=== PATIENT | male | born 1955 | race Asian ===

== ENCOUNTER 2017-07-12 14:38 | Emergency (ER) | payer MEDICAID ==
[~2017-07-12] VITALS: Ht 167.6 cm; Wt 75.7 kg
[2017-07-12 16:32] LABS: Basophils # (auto) 0 uL; Basophils % (auto) 0.3 % (0.0-2.0); CONDITION Y; Eosinophils # (auto) 0 uL; Eosinophils % (auto) 0.6 % (0.0-7.0); Hematocrit 38.2 % (41.0-53.0); Hemoglobin 12.6 g/dL (13.5-17.5); Lymphocytes # (auto) 1.1 uL; Lymphocytes % (auto) 12.5 % (10.0-50.0); Mean Corpuscular Hemoglobin 27.6 pg (28.0-32.0); Mean Corpuscular Volume 83.8 fL (80.0-100.0); Monocytes # (auto) 0.5 uL; Monocytes % (auto) 5.8 % (0.0-12.0); Neutrophils # (auto) 7.1 uL; Neutrophils % (auto) 80.8 % (37.0-80.0); Platelet Count (auto) 209 10^3/uL (140-450); Red Cell Distribution Width 14.5 % (11.6-16.0); White Blood Cell 8.7 10^3/uL (4.4-10.8)
[2017-07-12 17:10] LABS: Albumin 3.6 g/dL (3.4-5.0); Calcium 8.6 mg/dL (8.5-10.1); Chloride 107 mmol/L (98-107); Sodium 140 mmol/L (136-145)
[2017-07-12 17:12] LABS: Anion Gap 8 (5-15); Aspartate Aminotransferase 16 U/L (15-37); Blood Urea Nitrogen 16 mg/dL (7-18); Carbon Dioxide 25 mmol/L (21-32); GFR African American 104 mL/min; GFR Non-African American 86 mL/min; Glucose 162 mg/dL (74-106); Magnesium 2.4 mg/dL (1.6-2.6)
[2017-07-12 17:45] LABS: Alkaline Phosphatase 52 U/L (45-117); Bilirubin, Total 0.3 mg/dL (0.2-1.0); Total Protein 7.3 g/dL (6.4-8.2)
[2017-07-12 17:48] VITALS: BP 145/91
== END 2017-07-12 17:51 ==
LOC: ER 14:38
DX: B34.9 Viral infection, unspecified (principal); E11.9 Type 2 diabetes mellitus without complications; E78.5 Hyperlipidemia, unspecified; I10 Essential (primary) hypertension
CPT/HCPCS: 36415; 70450; 71010; 80053; 82962; 83735; 84484; 85025; 93005; 94761

== ENCOUNTER 2024-10-20 20:30 | Emergency (ER) | payer BC, MEDICAID ==
[~2024-10-20] VITALS: Ht 167.6 cm; Wt 76.1 kg
--- NOTE | 2024-10-21 00:23 | ED.PDOC ---
Epistaxis- HPI HPI Comments This 69-year-old male presents to the ED chief complaint nosebleed x2 hours. Patient reports measures at home did not stop bleeding. He denies any blood thinners however currently takes 81 mg baby aspirin. Patient reports history of nosebleeds in the past last 1 was over 40 years ago which resolved on its own. Also states history of intermittent nosebleeds which usually resolve on their own. He denies trauma, headache, dizziness, nausea, or vomiting. Chief Complaint: Nose Bleed Time Seen by MD: 21:28 Reviewed Notes: Nurses Notes, Medications, Allergies Allergies: Coded Allergies: NO KNOWN ALLERGIES (Unverified , 07/12/17) Information Source: Patient Mode of Arrival: Ambulatory Past Medical History PAST MEDICAL HISTORY: DM, High Lipids, HTN Surgical History: Denies all surgeries Family History Family History: Reviewed,noncontributory to illness Social History Smoker: Non-Smoker Alcohol: Denies ETOH Use Drugs: Denies Drug Use Lives In: Home Constitutional: denies: chills, diaphoresis, fatigue, fever, malaise, sweats, weakness, others EENTM: reports: others (Nosebleed left nostril); denies: blurred vision, double vision, ear bleeding, ear discharge, ear drainage, ear pain, ear ringing, eye pain, eye redness, hearing loss, mouth pain, mouth swelling, nasal discharge, nose bleeding, nose congestion, nose pain, photophobia, tearing, throat pain, throat swelling, voice changes Respiratory: denies: cough, hemoptysis, orthopnea, SOB at rest, shortness of breath, SOB with excertion, stridor, wheezing, others Cardiovascular: denies: chest pain, dizzy spells, diaphoresis, Dyspnea on exertion, edema, irregular heart beat, left arm pain, lightheadedness, palpitations, PND, syncope, others Gastrointestinal: denies: abdomen distended, abdominal pain, blood streaked bowels, constipated, diarrhea, dysphagia, difficulty swallowing, hematemesis, melena, nausea, poor appetite, poor fluid intake, rectal bleeding, rectal pain, vomiting, others Genitourinary: denies: burning, dysuria, flank pain, frequency, hematuria, incontinence, penile discharge, penile sore, pain, testicle pain, testicle swelling, urgency, others Neurological: denies: dizziness, fainting, headache, left sided numbness, left sided weakness, numbness, paresthesia, pre-existing deficit, right sided numbness, right sided weakness, seizure, speech problems, tingling, tremors, w eakness, others Musculoskeletal: denies: back pain, gout, joint pain, joint swelling, muscle pain, muscle stiffness, neck pain, others Integumetry: denies: bruises, change in color, change in hair/nails, dryness, laceration, lesions, lumps, rash, wounds, others Allergic/Immunocompromised: denies: Difficulty Healing, Frequent Infections, Hives, Itching, others Hematologic/Lymphatic: denies: anemia, blood clots, easy bleeding, easy bruising, swollen glands, others Endocrine: denies: excessive hunger, excessive sweating, excessive thirst, excessive urination, flushing, intolerance to cold, intolerance to heat, unexplained weight gain, unexplained weight loss, others Psychiatric: denies: anxiety, bipolar disorder, depression, hopeless, panic disorder, schizophrenia, sleepless, suicidal, others Physical Exam General Appearance: No Apparent Distress, Normal HEENT: Pharynx Normal, TMs Normal, Other (Noted continuous bleeding left nare) Neck: Full Range of Motion, Non-Tender Respiratory: Lungs Clear, No Respiratory Distress, Normal Breath Sounds Cardiovascular: No Edema, No JVD, No Murmur, No Gallop, Normal Peripheral Pulses, Regular Rate/Rhythm Breast Exam: Deferred Gastrointestinal: Non Tender, Soft Genitalia: Deferred Pelvic: Deferred Rectal: Deferred Extremities: Normal capillary refill, Normal inspection, Normal range of motion, Non-tender, No pedal edema Musculoskeletal : Apperance: Normal Neurologic: Alert, manager control II-XII nml as Tested, No Motor Deficits, Normal Affect, Normal Mood, No Sensory Deficits Cerebellar Function: Normal Reflexes: Normal Skin: Dry, Normal Color, Warm Lymphatic: No Adenopathy Was a procedure done? Was a procedure done?: No Differential Diagnosis (NSB) Differential Diagnosis: Anterior Nasal Bleed X-Ray, Labs, Meds, VS Vital Signs Date Time Temp Pulse Resp B/P (MAP) Pulse Ox O2 Delivery O2 Flow Rate FiO2 10/21/24 00:36 71 18 95 Room Air 10/21/24 00:36 97.4 71 18 160/74 (102) 95 97.4 10/20/24 21:47 97.4 67 20 178/83 (114) 97 X-Ray, Labs, Meds, VS Comment Left near bleeding controlled with rhino rocket patient tolerated well minimal blood loss. Patient states he is on aspirin denies cardiac history, or strokes in the past. Advised to hold off on baby aspirin for 2 days and re-evaluate. Advised to follow up within 24 to 48 hours to remove rhino rocket. Advised on ER precautions for increasing bleeding return. Patient agrees with discharge plan of care. Time of 1ST Reevaluation: 00:23 Reevaluation 1ST: Unchanged Patient Education/Counseling: Diagnosis, Treatment, Prognosis, Need For Follow Up Family Education/Counseling: Diagnosis, Treatment, Prognosis, Need For Follow Up Departure 1 Departure Time of Disposition: 00:23 Impression: Primary Impression: Epistaxis Disposition: HOME / SELF CARE / HOMELESS Condition: Stable Discharged With: Other (Daughter) Critical Care Note Critical Care Time?: No Stability Stability form required: WILLIS Hernandez Oct 21, 2024 00:23
[2024-10-21 00:36] VITALS: BP 160/74; PULSE 71; RESP 18; TEMP 97.4; O2SAT 95
== END 2024-10-21 00:47 | disposition home or self-care (01) ==
LOC: ER 20:30
DX: R04.0 Epistaxis (principal); E11.9 Type 2 diabetes mellitus without complications; E78.5 Hyperlipidemia, unspecified; I10 Essential (primary) hypertension
CPT/HCPCS: 30901

== ENCOUNTER 2024-11-02 14:40 | Emergency (ER) | payer BC ==
[~2024-11-02] VITALS: Ht 167.6 cm; Wt 78.2 kg
--- NOTE | 2024-11-02 15:36 | ED.PDOC ---
Epistaxis- HPI HPI Comments A very pleasant 69-year-old male who arrives the ED today for evaluation of left-sided nosebleed for the past few hours. At time of evaluation, the nose bleeding has been controlled. Patient states he has had a recent history of recurrent epistaxis events as well as a 40 year history where he had chemical ca uterization performed to control bleeding events. Patient denies any fever nausea or vomiting. Patient denies any trauma. Vital signs were stable on arrival. Chief Complaint: Nose Bleed Time Seen by MD: 15:13 Reviewed Notes: Nurses Notes Allergies: Coded Allergies: NO KNOWN ALLERGIES (Unverified , 07/12/17) Information Source: Patient, Relative (Child) Mode of Arrival: Ambulatory Severity: # Tbsp. (Ten), Bleeding Controlled Timing: Hours Duration: Hours Prehospital treatment: None Location: Left naris Mechanism: Spontaneous onset Use of: None History of: Nasal bleeding Last Tetanus: UTD Nose: Normal Nose: Intranasal/Septum: Blood Bleeding Status: No active bleeding Bleeding Amount: Moderate Source: Left Past Medical History PAST MEDICAL HISTORY: DM, High Lipids, HTN Past Medical History (Other): Long history of epistaxis events Surgical History: Denies all surgeries Family History Family History: Reviewed,noncontributory to illness Social History Smoker: Non-Smoker Alcohol: Denies ETOH Use Drugs: Denies Drug Use Lives In: Home Constitutional: denies: chills, diaphoresis, fatigue, fever, malaise, sweats, weakness, others EENTM: reports: nose bleeding; denies: blurred vision, double vision, ear bleeding, ear discharge, ear drainage, ear pain, ear ringing, eye pain, eye redness, hearing loss, mouth pain, mouth swelling, nasal discharge, nose congestion, nose pain, photophobia, tearing, throat pain, throat swelling, voice changes, others Respiratory: denies: cough, hemoptysis, orthopnea, SOB at rest, shortness of breath, SOB with excertion, stridor, wheezing, others Cardiovascular: denies: chest pain, dizzy spells, diaphoresis, Dyspnea on exertion, edema, irregular heart beat, left arm pain, lightheadedness, palpitations, PND, syncope, others Gastrointestinal: denies: abdomen distended, abdominal pain, blood streaked bowels, constipated, diarrhea, dysphagia, difficulty swallowing, hematemesis, melena, nausea, poor appetite, poor fluid intake, rectal bleeding, rectal pain, vomiting, others Genitourinary: denies: burning, dysuria, flank pain, frequency, hematuria, incontinence, penile discharge, penile sore, pain, testicle pain, testicle swelling, urgency, others Neurological: denies: dizziness, fainting, headache, left sided numbness, left sided weakness, numbness, paresthesia, pre-existing deficit, right sided numbness, right sided weakness, seizure, speech problems, tingling, tremors, weakness, others Musculoskeletal: denies: back pain, gout, joint pain, joint swelling, muscle pain, muscle stiffness, neck pain, others Integumetry: denies: bruises, change in color, change in hair/nails, dryness, laceration, lesions, lumps, rash, wounds, others Allergic/Immunocompromised: denies: Difficulty Healing, Frequent Infections, Hives, Itching, others Hematologic/Lymphatic: denies: anemia, blood clots, easy bleeding, easy bruising, swollen glands, others Endocrine: denies: excessive hunger, excessive sweating, excessive thirst, excessive urination, flushing, intolerance to cold, intolerance to heat, unexplained weight gain, unexplained weight loss, others Psychiatric: denies: anxiety, bipolar disorder, depression, hopeless, panic disorder, schizophrenia, sleepless, suicidal, others Physical Exam General Appearance: No Apparent Distress (Patient was in no distress at time of evaluation.), Normal HEENT: Pharynx Normal, TMs Normal, Other (Crusted blood noted over the left near Kiesselbach's plexus. No active bleed. No signs of trauma.) Neck: Full Range of Motion, Non-Tender, Normal, Normal Inspection Respiratory: Chest Non-Tender, Lungs Clear, No Accessory Muscle Use, No Respiratory Distress, Normal Breath Sounds Cardiovascular: No Edema, No JVD, No Murmur, No Gallop, Normal Peripheral Pulses, Regular Rate/Rhythm Breast Exam: Deferred Gastrointestinal: No Organomegaly, Non Tender, No Pulsatile Mass, Normal Bowel Sounds, Soft Genitalia: Deferred Pelvic: Deferred Rectal: Deferred Extremities: No calf tenderness, Normal capillary refill, Normal inspection, Normal range of motion, Non-tender, No pedal edema Neurologic: Alert, test fixture designer II-XII nml as Tested, No Motor Deficits, Normal Affect, Normal Mood, No Sensory Deficits Cerebellar Function: Normal Reflexes: Normal Skin: Dry, Normal Color, Warm Lymphatic: No Adenopathy Was a procedure done? Was a procedure done?: No Differential Diagnosis (NSB) Differential Diagnosis: Anterior Nasal Bleed X-Ray, Labs, Meds, VS Vital Signs Date Time Temp Pulse Resp B/P (MAP) Pulse Ox O2 Delivery O2 Flow Rate FiO2 11/02/24 14:54 98.6 60 16 159/57 (91) 96 X-Ray, Labs, Meds, VS Comment Patient was hopeful to not have a rhino rocket installed as he states they are uncomfortable and hopes the does not need it since bleeding is controlled. I confirmed that we would not be installing a rhino rocket today. Spent extensive time discussing the patient's concerns with him. Advised that definitive evaluation will occur through an ENT specialist to do a chemical or mechanical cauterization to stop continued bleeding events. Time of 1ST Reevaluation: 15:34 Reevaluation 1ST: Unchanged Consultation: PCP, ENT Patient Education/Counseling: Diagnosis, Treatment Family Education/Counseling: Diagnosis, Treatment Departure 1 Departure Time of Disposition: 15:35 Impression: Primary Impression: Epistaxis Disposition: 01 HOME / SELF CARE / HOMELESS Condition: Stable Additional Instructions: Advised patient to not disturb nose for the next 3-4 days. Additionally, advised follow up with the ENT for long-term management through chemical or mechanical cauterization. Discharged With: Self, Relative Critical Care Note Critical Care Time?: No Stability Stability form required: No Heart Score Heart Score: Heart Score Response (Comments) Value History N/A 0 EKG N/A 0 Age >65 2 Risk Factors 1 or 2 risk factors 1 Troponin N/A 0 Total 3 ROSEMARIE IZAGUIRRE PAC Nov 02, 2024 15:36
[2024-11-02 17:21] VITALS: BP 159/57; PULSE 60; RESP 16; O2SAT 96
== END 2024-11-02 17:24 | disposition home or self-care (01) ==
LOC: ER 14:40
DX: R04.0 Epistaxis (principal); E11.9 Type 2 diabetes mellitus without complications; E78.5 Hyperlipidemia, unspecified; I10 Essential (primary) hypertension